=== PATIENT | male | born 1965 | race Two or more races ===

== ENCOUNTER 2020-11-15 08:59 | Day surgery (SDC) | payer BC ==
[2020-11-11 17:10] VITALS: BMI 27.1
[2020-11-15] MEDS ORDERED: PROMETHAZINE HCL 25 MG/1 ML VIAL IVPUSH PRN (10:40)
[2020-11-15] MEDS ORDERED: LACTATED RINGERS SOLUTION 1,000 ML IV SCH ×2 (10:45→14:30)
[2020-11-15] MEDS ORDERED: MIDAZOLAM HCL 2 MG/2 ML SINGLE DOSE VIAL ONE (11:56)
[2020-11-15] MEDS ORDERED: ceFAZolin SODIUM 1 GM VIAL ONE (11:56)
[2020-11-15] MEDS ORDERED: PROPOFOL 20 ML ONE (11:56)
[2020-11-15] MEDS ORDERED: LIDOCAINE HCL/PF 2% SDV 5ML VIAL ONE (11:56)
[2020-11-15] MEDS ORDERED: ONDANSETRON 4 MG/2 ML VIAL ONE (13:41)
[2020-11-15] MEDS ORDERED: BUPIVACAINE HCL/PF 0.25% (2.5MG/ML) 10 ML VIAL ONE (13:47)
[2020-11-15] MEDS ORDERED: KETOROLAC TROMETHAMINE 30 MG/1 ML VIAL ONE (14:03)
[2020-11-15] MEDS ORDERED: ONDANSETRON 4 MG/2 ML VIAL IVPUSH PRN (14:25)
[2020-11-15] MEDS ORDERED: ACETAMINOPHEN 1000 MG/100 ML VIAL (NON FORMULARY) IVPB PRN (14:26)
[2020-11-15 16:20] VITALS: PULSE 79; TEMP 98.2
[2020-11-15 16:24] VITALS: BP 140/80
== END 2020-11-15 16:05 | disposition home or self-care (01) ==
LOC: FASU 08:59
PROVIDERS: ATTEND Orthopaedic Surgery Sports Medicine
PROC: 0SBC4ZZ Excision of Right Knee Joint, Percutaneous Endoscopic Approach (ICD-10-PCS; 2020-11-15)
PROC: 0SBC4ZZ Excision of Right Knee Joint, Percutaneous Endoscopic Approach (ICD-10-PCS; principal; 2020-11-15 13:44)
PROC: 0SBC4ZZ Excision of Right Knee Joint, Percutaneous Endoscopic Approach (ICD-10-PCS; 2020-11-15 13:44)
DX: S83.241A Other tear of medial meniscus, current injury, right knee, initial encounter (principal); M94.261 Chondromalacia, right knee; M65.9 Synovitis and tenosynovitis, unspecified; X58.XXXA Exposure to other specified factors, initial encounter; Y93.9 Activity, unspecified; Y92.9 Unspecified place or not applicable
CPT/HCPCS: 29880; G0289; 82962; 94760

== ENCOUNTER 2023-05-03 03:46 | Day surgery (SDC) | payer BC ==
[2023-04-30 14:16] VITALS: BMI 26.6
[2023-05-03] MEDS ORDERED: SIMETHICONE 40 MG/0.6 ML BOTTLE ONE (08:04)
[2023-05-03 08:23] VITALS: TEMP 98.6
[2023-05-03 08:56] VITALS: PULSE 66
[2023-05-03 09:03] VITALS: BP 101/63; RESP 16
== END 2023-05-03 09:03 | disposition home or self-care (01) ==
LOC: JASU-ENDO 03:46
PROVIDERS: ATTEND Internal Medicine Gastroenterology
PROC: 0DBL8ZX Excision of Transverse Colon, Via Natural or Artificial Opening Endoscopic, Diagnostic (ICD-10-PCS; 2023-05-03)
PROC: 0DBP8ZX Excision of Rectum, Via Natural or Artificial Opening Endoscopic, Diagnostic (ICD-10-PCS; principal; 2023-05-03 08:00)
DX: Z12.11 Encounter for screening for malignant neoplasm of colon (principal); D12.3 Benign neoplasm of transverse colon; D12.8 Benign neoplasm of rectum; K64.8 Other hemorrhoids
CPT/HCPCS: 88305-TC